=== PATIENT | male | born 1960 | race Caucasian/White ===

== ENCOUNTER → 2017-11-07 | Outpatient (CLI) | payer OTHER ==
--- NOTE | 2017-11-07 16:10 | MR ---
EXAMINATION TYPE: MR knee RT wo con DATE OF EXAM: 11/07/2017 COMPARISON: NONE HISTORY: Right knee pain TECHNIQUE: Multiplanar, multisequence imaging of the right knee is performed without IV contrast. FINDINGS: MEDIAL MENISCUS: Anterior and posterior horns are intact without tear. LATERAL MENISCUS: Anterior and posterior horns are intact without tear. CRUCIATE LIGAMENTS: The anterior and posterior cruciate ligaments are intact and unremarkable. COLLATERAL LIGAMENTS: The medial collateral ligament and lateral collateral ligament complex are inta ct and unremarkable. EXTENSOR MECHANISM: There is increased signal within the distal quadriceps tendon near the insertion of the tendon on the patella. Correlate for some injury at this location. EFFUSION: There is a mild joint effusion present. POPLITEAL CYST: No popliteal/rivera cyst. TRICOMPARTMENT SPACES: Preserved CARTILAGE: Mildly thinned diffusely. This is somewhat greater along the posterior superior patella. BONE MARROW SIGNAL: There is some contusion within the patella. Mild anterior femoral contusion is al so present. OTHER: No additional significant abnormality is appreciated. IMPRESSION: 1. Contusion anterior medial femoral condyle and mid posterior patella. 2. Increased signal within the distal quadriceps tendon near the insertion of the patella. Correlate for injury. 3. Small joint effusion.
== END | disposition home or self-care (01) ==
LOC: RADMRIMAIN 07:53
PROVIDERS: ATTEND Orthopaedic Surgery Sports Medicine
DX: S80.01XA Contusion of right knee, initial encounter (principal); M25.461 Effusion, right knee; R93.7 Abnormal findings on diagnostic imaging of other parts of musculoskeletal system

== ENCOUNTER → 2018-04-02 | Outpatient (CLI) | payer OTHER ==
[2018-04-02 08:26] LABS: HCT 42.9 % (39.0-53.0); HGB 14.4 gm/dL (13.0-17.5); MCH 30.4 pg (25.0-35.0); MCHC 33.5 g/dL (31.0-37.0); MCV 90.8 fL (80.0-100.0); Mean Platelet Volume 7.6; Platelet Count 269 k/uL (150-450); RBC 4.73 m/uL (4.30-5.90); WBC 5.9 k/uL (3.8-10.6)
[2018-04-02 16:21] LABS: Albumin 4.5 g/dL (3.80-4.90); Albumin/Globulin Ratio 2.5 (1.20-2.10); Anion Gap 6.8 mmol/L (4.00-12.00); Calcium 9.1 mg/dL (8.7-10.3); Carbon Dioxide 27.2 mmol/L (21.6-31.8); Globulin 1.8 g/dL (2.1-3.7); Potassium 4.5 mmol/L (3.5-5.5); Total Bilirubin 0.5 mg/dL (0.3-1.2); Total Protein 6.3 g/dL (6.2-8.2)
[2018-04-02 16:25] LABS: Vitamin D 25 Hydroxy 29.3 ng/mL (30.0-100.0)
[2018-04-02 16:28] LABS: PSA Annual Screen 0.9 ng/mL (0.0-4.0); T4, Free (Free Thyroxine) 1.4 ng/dL (0.80-1.80)
[2018-04-02 16:55] LABS: Cancer Antigen 19-9 5.4 U/mL (0.0-34.9)
[2018-04-02 18:31] LABS: Hemoglobin A1C 5.8 % (4.0-6.0)
== END ==
LOC: LABWHC1 08:05
PROVIDERS: ATTEND Internal Medicine Critical Care Medicine
DX: Z00.00 Encounter for general adult medical examination without abnormal findings (principal); M19.90 Unspecified osteoarthritis, unspecified site; Z87.19 Personal history of other diseases of the digestive system; Z12.5 Encounter for screening for malignant neoplasm of prostate
CPT/HCPCS: 84439; 80061; 80053; 86304; 82378; 84443; 85027; 82306; 86301; 83036; 36415; G0103

== ENCOUNTER 2018-06-28 11:01 | Day surgery (SDC) | payer BC, OTHER ==
[2018-06-26 12:26] VITALS: BMI 29.7
[~2018-06-28 11:01] MED LIST: LACTATED RINGERS 1,000 ML IV SCH
[2018-06-28 11:52] VITALS: TEMP 98.4
[2018-06-28] MEDS ORDERED: LIDOCAINE 1% 20 ML VIAL (10MG/ML) FOR IV START INTRADERMA ONE (12:02)
[2018-06-28] MEDS ORDERED: LIDOCAINE 1% INJ 10MG/ML (20 ML MDV) ONE (12:24)
[2018-06-28] MEDS ORDERED: PROPOFOL 10 MG/ML 20 ML VIAL IV ONE (12:24)
--- NOTE | 2018-06-28 12:41 | P.PCN ---
Date of Procedure: 06/28/18 Procedure(s) Performed: BRIEF HISTORY: Patient is a 57-year-old pleasant male, scheduled for an elective colonoscopy as a part of screening for colorectal neoplasia. PROCEDURE PERFORMED: Colonoscopy. PREOPERATIVE DIAGNOSIS: Screening for colon cancer. IV sedation per Anesthesia. PROCEDURE: After informed consent was obtained, the patient, was brought into the endoscopy unit. IV sedation was administered by Anesthesia under continuous monitoring. Digital rectal examination was normal. Initially the Olympus CF- 160 flexible video colonoscope was then inserted in the rectum, gradually advanced into the cecum without any difficulty. Careful examination was performed as the scope was gradually being withdrawn. Ileocecal valve and the appendiceal orifice were visualized and appeared normal. Prep was excellent. Mucosa of the cecum, ascending colon, transverse colon, descending colon, sigmoid colon, and rectum appeared normal. Retroflexion was performed in the rectum and no lesions were seen. The patient tolerated the procedure well. IMPRESSION: Normal-appearing colon from rectum to cecum with no evidence of colorectal neoplasia. RECOMMENDATIONS: Findings of this examination were discussed with the patient as well as his family. He was advised to have a repeat screening colonoscopy in 10 years.
[2018-06-28 12:46] VITALS: RESP 16
[2018-06-28 13:11] VITALS: BP 115/58; PULSE 66
== END 2018-06-28 13:23 | disposition home or self-care (01) ==
LOC: ORWHC2ENDO 11:01
PROVIDERS: ATTEND Internal Medicine Gastroenterology
DX: Z12.11 Encounter for screening for malignant neoplasm of colon (principal); Z91.040 Latex allergy status; Z79.1 Long term (current) use of non-steroidal anti-inflammatories (NSAID)
CPT/HCPCS: J2001; J2704; G0121; 45378

== ENCOUNTER → 2019-05-30 | Outpatient (CLI) | payer BC ==
--- NOTE | 2019-05-30 18:24 | MR ---
EXAMINATION TYPE: MR shoulder LT wo con DATE OF EXAM: 05/30/2019 COMPARISON: No radiographic correlation available HISTORY: 58-year-old male Left shoulder pain TECHNIQUE: Multiplanar, multisequence imaging of the left shoulder is performed without contrast. FINDINGS: The long head biceps tendon appears intact and appropriately situated along the bicipital groove. Mod erate tenosynovial fluid is present. There appears to be significant tearing of the subscapularis tendon. Inferior third fibers remain int act. Some fluid is seen delaminating along the superior myotendinous junction. Moderate degenerative joint space narrowing and marginal spurring at the acromioclavicular joint. Mild effusion and bursal thickening along the subacromial/subdeltoid bursa. Diffuse heterogeneity of both the supraspinatus and infraspinatus tendons. There is irregular partial thickness tear of the anterior surface meniscal distended measuring 1.1 cm AP and 1.1 cm long with extensive underlying degenerative bony changes within the superior facet of the greater tuberosity. The tear appears articular sided. No definite full-thickness communication at this time. The infraspinatus tendon shows severe focal intrasubstance change and areas of intrasubstance tearing . No atrophy of the rotator cuff musculature. There is irregular increased signal within the superior labrum at the level of the biceps anchor. No paralabral cyst. There is soft tissue replacement within the rotator cuff interval and slight edematous thickening meghann ng the axillary recess. The glenohumeral joint is intact with mild diffuse cartilage thinning. No Hill-Sachs deformity or os acromiale. Patchy red marrow is present and can be seen in the setting of anemia, smoking, and chronic disease. IMPRESSION: 1. Marked diffuse rotator cuff tendinosis. There is a high-grade articular sided tear of the anterior supraspinatous tendon measuring 1.1 x 1.1 cm. No definite full-thickness communication at this time. 2. There appears to be significant tearing of the subscapularis tendon. The inferior third fibers rem ain intact. 3. Infraspinatus tendon shows severe focal tendinosis at the insertion along with areas of intrasubst ance tearing. No high-grade partial or full-thickness tear of the infraspinatus tendon. 4. Moderate long head biceps tenosynovitis. 5. Edematous thickening within the rotator cuff interval and slight edematous thickening along the ax illary recess. Findings could represent ligamentous sprains including sprain of the biceps jonathan av ecially in the setting of subscapularis tendon injury. However, findings can also be seen with adhesi ve capsulitis and clinical correlation is recommended. 6. Superior labral tear at the level of the biceps anchor. 7. Moderate AC joint OA.
== END | disposition home or self-care (01) ==
LOC: RADMRIMAIN 06:17
PROVIDERS: ATTEND Internal Medicine Critical Care Medicine
DX: M75.102 Unspecified rotator cuff tear or rupture of left shoulder, not specified as traumatic (principal); M19.012 Primary osteoarthritis, left shoulder; M65.812 Other synovitis and tenosynovitis, left shoulder; M75.82 Other shoulder lesions, left shoulder

== ENCOUNTER → 2019-07-21 | Outpatient (CLI) | payer BC ==
--- NOTE | 2019-07-21 10:25 | MR ---
EXAMINATION TYPE: MR cervical spine wo con DATE OF EXAM: 07/21/2019 COMPARISON: None HISTORY: Cervical disc TECHNIQUE: Multiplanar, multisequence images of the cervical spine were acquired. C2-C3: No evidence for degenerative disc disease. No disc bulge/herniation or protrusion. No Canal stenosis. Foramina are patent bilaterally. C3-C4: There is facet arthropathy and uncovertebral joint hypertrophy with moderate to severe bilater al foraminal encroachment. Posterior spondylosis noted with no discrete herniation or canal stenosis. C4-C5: Degenerative disc disease with facet arthropathy. Uncovertebral joint hypertrophy with moderat e right-sided foraminal encroachment. There may be congenital fusion of the right facet of C4 and C5. C5-C6: Degenerative disc disease with central disc based protrusion. There is mild effacement of thec al sac. Facet arthropathy and uncovertebral joint projecting contribute to moderate bilateral foramin al encroachment and mild central stenosis. C6-C7: Degenerative disc disease. There is uncovertebral joint hypertrophy. There is facet arthropath y. Mild to moderate right foraminal encroachment. No Canal stenosis. C7-T1: Slight anterolisthesis. No obvious disc herniation or canal stenosis. Mild bilateral foraminal encroachment. Incidental noted is made on sagittal imaging of sagittal disc protrusions at T1-T2 and T2-T3 with deg enerative disc disease. Cervical segments are intact. There is slight anterolisthesis of C7 relative to T1. Cervical spinal cord is of normal signal. Craniovertebral junction relationships are within normal limits. IMPRESSION: 1. Multilevel degenerative disc disease most marked at C5-6 and C6-C7. Broad-based central disc protr usion with hypertrophic changes at C5-C6 results in mild canal stenosis and moderate bilateral forami nal encroachment. 2. Moderate to severe bilateral foraminal encroachment C3-C4 due to uncovertebral joint hypertrophy a nd facet arthropathy. 3. Moderate right foraminal encroachment C4-C5. Suggestion of possible fusion of the facet joint at t his level on the right. 4. On the sagittal images findings are suggestive of sagittal disc protrusions at T1-T2 and T2-T3 whi ch are not included on the axial images. Recommend thoracic spine MRI.
== END | disposition home or self-care (01) ==
LOC: RADMRIMAIN 08:52
PROVIDERS: ATTEND Orthopaedic Surgery
DX: M48.02 Spinal stenosis, cervical region (principal); M50.222 Other cervical disc displacement at C5-C6 level; M50.322 Other cervical disc degeneration at C5-C6 level; M48.9 Spondylopathy, unspecified; M19.012 Primary osteoarthritis, left shoulder
CPT/HCPCS: 72141

== ENCOUNTER → 2019-10-31 | Outpatient (CLI) | payer BC | END | disposition home or self-care (01) | LOC: LABWHC1 16:18 | PROVIDERS: ATTEND Orthopaedic Surgery | DX: U07.1 COVID-19 (principal) ==